=== PATIENT | female | born 1990 | race Hispanic/Latino ===

== ENCOUNTER 2020-10-02 23:05 | Emergency (ER) | payer MEDICAID ==
[~2020-10-02] VITALS: Ht 165.1 cm; Wt 102.1 kg
[2020-10-03 00:05] VITALS: BP 142/89
== END 2020-10-03 00:14 | disposition home or self-care (01) ==
LOC: EDH 23:05
DX: J06.9 Acute upper respiratory infection, unspecified (principal); Z20.822 Contact with and (suspected) exposure to COVID-19
CPT/HCPCS: 87635; 87804 ×2; 87880; 99283; C9803

== ENCOUNTER 2021-06-08 21:13 | Emergency (ER) | payer MEDICAID ==
[~2021-06-08] VITALS: Ht 165.1 cm; Wt 99.8 kg
[2021-06-08 21:37] LABS: APPEARANCE,URINE CLEAR (CLEAR); BILIRUBIN,URINE NEGATIVE (NEGATIVE); COLOR,URINE YELLOW (YELLOW); GLUCOSE, URINE (UA) >=1000 mg/dL (NEGATIVE); KETONES,URINE NEGATIVE (NEGATIVE); LEUKOCYTE ESTERASE ,URINE NEGATIVE (NEGATIVE); NITRATE,URINE POSITIVE (NEGATIVE); OCCULT BLOOD,URINE NEGATIVE (NEGATIVE); PROTEIN,URINE NEGATIVE (NEGATIVE); UROBILINOGEN,URINE 0.2 mg/dL (0.2-1.0)
[2021-06-08 21:48] LABS: BACTERIA,URINE Rare /HPF (None Seen); RBC,URINE 0-1 /HPF (0-1); SQUAMOUS EPITHELIAL CELL,UR Rare /HPF (0-2); WBC,URINE 0-1 /HPF (0-1); YEAST,URINE BUDDING Rare /HPF (None Seen)
[2021-06-08] MEDS ORDERED: CEFTRIAXONE 1G VIAL IM ONE (22:00)
[2021-06-08 22:42] VITALS: BP 128/78
[2021-06-08 22:44] LABS: CREATININE 0.7 mg/dL (0.5-1.5); POTASSIUM 4.2 mmol/L (3.5-5.1)
[2021-06-08] MEDS ORDERED: CEPH500B PO (22:50)
[2021-06-08] MEDS ORDERED: METF-444 PO (22:50)
== END 2021-06-08 22:54 | disposition home or self-care (01) ==
LOC: EDH 21:13
DX: N39.0 Urinary tract infection, site not specified (principal); E11.9 Type 2 diabetes mellitus without complications
CPT/HCPCS: 36415; 80048; 81001; 82948; 84702; 87088; 96372; 99283; J0696

== ENCOUNTER 2021-12-20 17:22 | Emergency (ER) | payer BC, MEDICAID ==
[~2021-12-20] VITALS: Ht 165.1 cm; Wt 99.3 kg
[~2021-12-20 17:22] MED LIST: CEPH500B PO; METF-444 PO
[2021-12-20 19:20] LABS: BASOPHILS % (AUTO) 0.4 % (0.0-5.0); EOSINOPHILS % (AUTO) 1.4 % (0.0-8.0); LYMPHOCYTES % (AUTO) 14.7 % (21.0-51.0); MEAN CORPUSCULAR HEMOGLOBIN 27.3 pg (27.0-33.0); MEAN CORPUSCULAR HGB CONC 34.1 g/dL (32.0-36.0); MEAN CORPUSCULAR VOLUME 80.1 fL (79-99); MONOCYTES % (AUTO) 4.3 % (3.0-13.0); NEUTROPHILS % (AUTO) 78.8 % (40.0-77.0); PLATELET COUNT (AUTO) 295 K/uL (130-400); RED BLOOD CELL COUNT(AUTO) 5.49 MIL/uL (4.00-5.50); RED CELL DISTRIBUTION WIDTH 12.8 % (11.0-15.5); WHITE BLOOD COUNT (AUTO) 10.5 K/uL (4.8-10.8)
[2021-12-20 19:22] LABS: APPEARANCE,URINE CLEAR (CLEAR); BILIRUBIN,URINE NEGATIVE (NEGATIVE); COLOR,URINE YELLOW (YELLOW); GLUCOSE, URINE (UA) NEGATIVE (NEGATIVE); KETONES,URINE 5 mg/dL (NEGATIVE); LEUKOCYTE ESTERASE ,URINE NEGATIVE Leu/uL (NEGATIVE); NITRATE,URINE NEGATIVE (NEGATIVE); OCCULT BLOOD,URINE NEGATIVE (NEGATIVE); PH,URINE 5.5 (5.0-8.0); PROTEIN,URINE 10 mg/dL (NEGATIVE); UROBILINOGEN,URINE 0.2 mg/dL (0.2-1.0)
[2021-12-20 19:25] LABS: BACTERIA,URINE RARE /HPF (None Seen); MUCUS,URINE FEW LPF (None Seen); SQUAMOUS EPITHELIAL CELL,UR RARE /HPF (0-2); WBC,URINE 0-1 /HPF (0-1)
[2021-12-20 19:26] LABS: HCG,QUALITATIVE URINE NEGATIVE (NEGATIVE)
[2021-12-20 19:30] LABS: CREATININE 0.7 mg/dL (0.5-1.5); POTASSIUM 3.8 mmol/L (3.5-5.1)
[2021-12-20 19:35] LABS: ALBUMIN 3.8 g/dL (3.5-5.0); TOTAL PROTEIN, SERUM 8.7 g/dL (6.0-8.3)
[2021-12-20 20:14] LABS: INFLUENZA TYPE A NEGATIVE FOR TYPE A (NEG); INFLUENZA TYPE B NEGATIVE FOR TYPE B (NEG)
[2021-12-20] MEDS ORDERED: ONDANSETRON 4MG INJ IVP ONE (20:30)
[2021-12-20] MEDS ORDERED: 0.9%NACL 1000ML 1,000 ML IV SCH (20:30)
[2021-12-20] MEDS ORDERED: ACETAMINOPHEN 325 MG TAB PO ONE (20:30)
[2021-12-20] MEDS ORDERED: IOHEXOL 350 MG/ML 100ML INFUS..BTL IV ONE (20:42)
[2021-12-20] MEDS ORDERED: IBUP-2071 PO (21:40)
[2021-12-20 22:19] VITALS: BP 122/54
== END 2021-12-20 22:20 | disposition home or self-care (01) ==
LOC: EDH 17:22
DX: N83.202 Unspecified ovarian cyst, left side (principal); R10.9 Unspecified abdominal pain; Z20.822 Contact with and (suspected) exposure to COVID-19; E11.9 Type 2 diabetes mellitus without complications; Z79.84 Long term (current) use of oral hypoglycemic drugs
CPT/HCPCS: 99285; 74177; 96374; 96361; 87635; 80053; 83690; 85025; 87804 ×2; 81001; 81025; 36415; C9803; J7030; J2405; Q9967

== ENCOUNTER 2024-12-15 17:36 | Emergency (ER) | payer BC ==
[~2024-12-15] VITALS: Ht 167.6 cm; Wt 93.4 kg
[~2024-12-15 17:36] MED LIST changes: +IBUP-2071 PO; +NAPR-1196 PO
--- NOTE | 2024-12-15 17:56 | ERN ---
ED Note History of Present Illness Stated Complaint: HEADACHE Chief Complaint: Headache Time Seen by MD: 17:38 Time Seen by Midlevel: 17:38 Dictation: The patient is a 34-year-old female with history of DM who presents to the emergency department with complains of right side headache onset 5 days ago. Patient also reports that she has been having on and off blurry vision from her right eye. Reports she has been taking Excedrin on and off for the headaches with little relief. Patient also reports that she developed left arm pain onset today in the morning. Denies chest pain. Denies fevers, denies nausea or vomiting. Denies head trauma. Allergies: Coded Allergies: No Known Allergies (Unverified Allergy, Unknown, 10/02/20) Home Meds Active Scripts Naproxen (Naproxen) 250 Mg Tablet, 1 TAB PO BID for pain for 10 Days, #20 TAB 0 Refills Prov:CHECO WARREN MD 03/30/24 Ibuprofen (Ibuprofen) 800 Mg Tablet, 800 MG PO Q8H PRN for PAIN, #30 TAB 0 Refills Prov:STERLING TIPTON MD 12/20/21 Metformin HCl (Metformin HCl) 500 Mg Tablet, 500 MG PO BID, #60 TAB Prov:FITTINGCATIA COLOR TELEVISION CONSOLE MONITOR 06/08/21 Cephalexin Monohydrate (Keflex) 500 Mg Cap, 500 MG PO QID for 7 Days, #28 CAP Prov:CATIA HAZEL COLOR TELEVISION CONSOLE MONITOR 06/08/21 Past Medical History Past Medical History: Diabetes-Type II Additional Past Medical Hx: FATTY LIVER Surgical History: Other, None Social History: Negative : 1 Para: 1 Aborts: 0 RN Note Reviewed/Agreed w/PFSH: Yes Review of System Dictation Constitutional: Negative for fever,chills, and weight loss Eyes: Negative for injury, pain,redness, and discharge ENT: Negative for injury,pain or swelling Cardiovascular: Negative for chest pain, palpitations, and edema Respiratory: Negative for shortness of breath, cough, and wheezing, Abdomen/GI: Negative for abdominal pain, nausea, vomiting, diarrhea, and constipation Back: Negative for injury and pain : Negative for injury, bleeding and discharge MS/Extremity: Negative for injury and deformity Skin: Negative for rash, and discoloration Neuro: Negative for, weakness, numbness, tingling, and seizure positive for headache. Psych: Negative for suicide ideation, homicidal ideation, and hallucinations Initial Vital Sign VS Vital Signs Date Time Temp Pulse Resp B/P (MAP) Pulse Ox O2 Delivery O2 Flow Rate FiO2 12/15/24 17:38 98.2 68 18 132/85 99 12/15/24 19:34 Room Air* 0 21 Physical Exam Dictation Vital Signs reviewed General Appearance: Alert, oriented x 3, no acute distress, well developed, nourished. Head and Face: non-traumatic. Eyes: PERRL, pink conjunctivas, eyelid no trauma, anterior chamber with arcus senilis. Ears: Pinnas intact and no signs of trauma or erythema ear canals clear and no discharge TM no erythema Nose: No discharge, no bleeding. Oropharynx: Mouth normal, tongue pink. pharynx clear,no erythema, tonsils no exudates, no abscesses noted, mucous membrane moist Neck: Supple, non-tender, no thyromegaly, no masses, no JVD, no bruits Breast:Deferred Chest:No tenderness, no crepitus, no paradoxical movement, no retractions Lungs:Clear, well-ventilated, symmetric, no rales, no wheezing, no rhonchi, no stridor, good breath sounds bilaterally Heart: Regular rate, regular rhythm, no murmur, no gallops Vascular: no peripheral edema, Abdomen: Soft, positive bowel sounds, nondistended, no guarding, nontender, no rebound, no masses no hepatomegaly, no splenomegaly, no Nichole's sign, no hernias. Rectal: Deferred Genital: Deferred Neurological: Normal speech, motor function intact, sensory function intact , upper extremities equal in strength, lower extremities equal in strength. No facial droop, no slurred speech. Musculoskeletal: Neck nontender, full range of motion, back nontender, full range of motion, Extremities: nontender, full range of motion Skin: Color pink, dry, no turgor, no rash, no lacerations, no abrasions, no contusions. Lymphatic: Deferred Results (Laboratory/Radiology) Laboratory/Radiology Laboratory Tests Test 12/15/24 18:06 12/15/24 19:04 White Blood Count 7.9 K/uL (4.8-10.8) Red Blood Count 4.47 MIL/uL (4.00-5.50) Hemoglobin 12.4 g/dL (12.0-16.0) Hematocrit 37.3 % (36-48) Mean Corpuscular Volume 83.4 fL (79-99) Mean Corpuscular Hemoglobin 27.7 pg (27.0-33.0) Mean Corpuscular Hemoglobin Concent 33.2 g/dL (32.0-36.0) Red Cell Distribution Width 12.9 % (11.0-15.5) Platelet Count 277 K/uL (130-400) Mean Platelet Volume 11.4 fL (7.5-10.5) H Immature Granulocyte % (Auto) 0.3 % (0-1) Neutrophils (%) (Auto) 56.7 % (40.0-77.0) Lymphocytes (%) (Auto) 33.6 % (21.0-51.0) Monocytes (%) (Auto) 6.6 % (3.0-13.0) Eosinophils (%) (Auto) 2.3 % (0.0-8.0) Basophils (%) (Auto) 0.5 % (0.0-5.0) Neutrophils # (Auto) 4.5 K/uL (1.8-7.7) Lymphocytes # (Auto) 2.6 K/uL (1.0-4.8) Monocytes # (Auto) 0.5 K/uL (0.1-1.0) Eosinophils # (Auto) 0.18 K/uL (0.00-0.70) Basophils # (Auto) 0.04 K/uL (0.00-0.20) Absolute Immature Granulocyte (auto 0.02 K/uL (0-1) Nucleated Red Blood Cells 0.0 % (0.0-0.19) Sodium Level 138 mmol/L (136-145) Potassium Level 3.9 mmol/L (3.5-5.1) Chloride Level 101 mmol/L (101-111) Carbon Dioxide Level 29 mmol/L (21-32) Blood Urea Nitrogen 9 mg/dL (7-18) Creatinine 0.7 mg/dL (0.5-1.0) Glomerular Filtration Rate Calc 116 mL/min (>90) Random Glucose 130 mg/dL (70-105) H Total Calcium 8.7 mg/dL (8.5-10.1) Magnesium Level 2.00 mg/dL (1.80-2.40) Total Creatine Kinase 65 U/L (21-232) Troponin I High Sensitivity 10 ng/L (4-50) Urine Color LIGHT-YELLOW (YELLOW) Urine Appearance CLEAR (CLEAR) Urine pH 6.0 (5.0-8.0) Urine Specific Ingram 1.006 (1.001-1.031) Urine Protein NEGATIVE mg/dL (NEGATIVE) Urine Glucose (UA) NEGATIVE mg/dL (NEGATIVE) Urine Ketones NEGATIVE mg/dL (NEGATIVE) Urine Occult Blood NEGATIVE (NEGATIVE) Urine Nitrate NEGATIVE (NEGATIVE) Urine Bilirubin NEGATIVE mg/dL (NEGATIVE) Urine Urobilinogen 0.2 mg/dL (0.2-1.0) Urine Leukocyte Esterase NEGATIVE Yesy/uL Urine HCG, Qualitative NEGATIVE (NEGATIVE) SERVICE 23 REASON: headache, vision changes ORDERING PHYSICIAN: GENE ROMO COLOR TELEVISION CONSOLE MONITOR PROCEDURE: HEAD WO - CT HEAD/BRAIN W/O CONTRAST EXAM: CT Head Without IV contrast. CLINICAL HISTORY: Headache, vision changes TECHNIQUE: Axial computed tomography images of the head/brain without intravenous contrast. COMPARISON: None provided. FINDINGS: BRAIN: No evidence of acute hemorrhage. No mass lesion. No CT evidence for acute territorial infarct. No midline shift or extra-axial collections. VENTRICLES: No hydrocephalus. ORBITS: The orbits are unremarkable. SINUSES AND MASTOIDS: The paranasal sinuses and mastoid air cells are clear. BONES: No fracture. SOFT TISSUES: Unremarkable. IMPRESSION: No evidence of acute hemorrhage. No mass lesion. No CT evidence for acute territorial infarct. Suggested MRI brain, if clinically indicated. /[place] REASON: sob ORDERING PHYSICIAN: GENE ROMO COLOR TELEVISION CONSOLE MONITOR PROCEDURE: CXR1VW - CHEST 1VW EXAM: CHEST RADIOGRAPH (1 VIEW) Technique: A single frontal view of the chest was obtained. Clinical Information: Shortness of breath. Findings: Lungs and large airways: Clear lungs without focal airspace consolidation. Pleura: No pleural effusion. No pneumothorax detected. Cardiomediastinum: Cardiac silhouette within expected size limits; mediastinal contours are unremarkable. Mediastinum and ifeoma: No mediastinal widening; ifeoma are not enlarged by radiographic criteria. Diaphragm: Hemidiaphragms are normal in contour. Bones and joints: No acute osseous abnormality identified. Upper abdomen: Visualized portions are unremarkable. Devices and lines: None.IMPRESSION: 1. No acute cardiopulmonary findings. /[place] Labs Reviewed?: Yes EKG: (+) rhythm (sinus Rhythm) EKG Comment: Date:12/15/2024 Time:182 Ventricular rate:60 NC interval:178 QRS duration:95 QT/QTc:407/407 EKG interpretation: Sinus rhythm Reviewed by ED Attending no STEMI ED Course ED Course Orders Procedure Category Date Status Time Cbc With Differential LAB 12/15/24 Complete 17:50 Chest 1vw RAD 12/15/24 Resulted 17:50 12 Lead Ekg Tracing- EKG 12/15/24 Complete Technical 17:50 0.9%Nacl 1000ml (Ns PHA 12/15/24 Complete 1000ml) 18:00 Acetaminophen 500mg PHA 12/15/24 Complete Tab (Tylenol 500mg T 18:00 Magnesium LAB 12/15/24 Complete 17:50 Creatine Kinase, Total LAB 12/15/24 Complete 17:50 Troponin I High LAB 12/15/24 Complete Sensitivity 17:50 Urinalysis Profile LAB 12/15/24 Complete 17:50 Basic Metabolic Panel LAB 12/15/24 Complete 17:50 ,Urine Test LAB 12/15/24 Complete 17:50 Metoclopramide 10 PHA 12/15/24 Complete Mg/2 Ml Vial (Reglan 1 18:00 Diphenhydramine Hcl PHA 12/15/24 Complete (Benadryl Inj) 18:00 Ct Head/Brain W/O CT 12/15/24 Resulted Contrast 19:24 Ketorolac PHA 12/15/24 Logged Tromethamine 15mg/Ml 21:00 Current Medications Medications (Trade) Dose Ordered Sig/Crystal Route PRN Reason Start Time Stop Time Status Last Admin Dose Admin Acetaminophen (TYLenol 500MG TAB) 1,000 mg ONCE ONCE PO 12/15/24 18:00 12/15/24 18:01 DC 12/15/24 19:23 Diphenhydramine HCl (BENAdryl INJ) 25 mg ONCE ONCE IV 12/15/24 18:00 12/15/24 18:01 DC 12/15/24 19:23 Ketorolac Tromethamine (toRADol) 15 mg ONCE ONCE IV 12/15/24 21:00 12/15/24 21:01 UNV Metoclopramide HCl (regLAN 10MG IV) 10 mg ONCE ONCE IVP 12/15/24 18:00 12/15/24 20:49 DC 12/15/24 19:23 Sodium Chloride 1,000 ml @ 0 mls/hr ONCE ONCE IV 12/15/24 18:00 12/15/24 18:01 DC 12/15/24 19:24 Vital Signs Date Time Temp Pulse Resp B/P (MAP) Pulse Ox O2 Delivery O2 Flow Rate FiO2 12/15/24 19:34 98.8 75 20 152/78 99 Room Air* 0 21 12/15/24 17:38 98.2 68 18 132/85 99 Medical Decision Making MDM The patient is a 34-year-old female with history of DM who presents to the emergency department with complains of right side headache onset 5 days ago. Patient also reports that she has been having on and off blurry vision from her right eye. Reports she has been taking Excedrin on and off for the headaches with little relief. Patient also reports that she developed left arm pain onset today in the morning. Denies chest pain. Denies fevers, denies nausea or vomiting. Denies head trauma. CBC showed no leukocytosis, no anemia, chemistry showed no electrolyte imbalance, negative troponin, urinalysis unremarkable CT showed no acute pathology. Xray showed no acute pathology. Patient reports felling better after medications. On physical exam patient continues in no acute distress, neurologically intact, NIH of 0. No current visual deficits. Patient will be discharge to follow up with PCP. Differential diagnosis: Need for hospitalization: Patient does not meet criteria for hospitalization. There are no social concerns with this patient. DX & DISP Disposition: Discharge Departure Impression: Primary Impression: Migraine headache Condition: Stable Additional Instructions: Your labs and imaging were unremarkable. Please follow up with the primary doctor in 1-2 days. If anything worsens please return to ER. FOLLOW-UP WITH PRIMARY CARE PROVIDER IN 1 TO 2 DAYS. TAKE MEDICATIONS DIRECTED HERE IN THE EMERGENCY ROOM. OKAY TO CONTINUE HOME MEDICATIONS UNLESS OTHERWISE DISCUSSED DURING YOUR VISIT IN THE EMERGENCY ROOM TODAY. RETURN TO YOUR NEAREST EMERGENCY ROOM IF SYMPTOMS WORSEN OR IF THERE IS NO IMPROVEMENT. CALL 911 IF YOU NEED IMMEDIATE ASSISTANCE. TAKE TYLENOL [id number] NEEDED AND IF NO CONTRAINDICATIONS ARE PRESENT. INCREASE ORAL HYDRATION. A WOUND CULTURE OR URINE CULTURE WAS ORDERED HERE IN THE EMERGENCY ROOM DEPARTMENT PLEASE FOLLOW-UP WITH PRIMARY CARE PROVIDER AND ADVISE THEM TO GET REPEAT PORTS FROM OUR FACILITY. IF YOU HAD ANY SHAYLA WRAP/SPLINTS THAT WERE APPLIED HERE, PLEASE DO NOT REMOVE THEM UNTIL YOU SEE YOUR PRIMARY CARE OR SPECIALTY. Referrals: HOLLIS ELAM MD (PCP) Time of Disposition: 20:33 I have reviewed the case, and I agree with, Diagnosis and Plan I performed a substantive portion of the visit. I have reviewed and personally made and approve the management plan that is documented in the notes by myself with NEO/resident. I acknowledged full responsibility for the patient's management plan. GENE ROMO Dec 15, 2024 17:56 SYDNI LUX DO Dec 15, 2024 20:51
[2024-12-15 18:16] LABS: IMMATURE GRANULOCYTE ABSOLUTE 0.02 K/uL (0-1); NUCLEATED RED BLOOD CELLS 0.0 % (0.0-0.19); PLATELET COUNT (AUTO) 277 K/uL (130-400); RED BLOOD CELL COUNT(AUTO) 4.47 MIL/uL (4.00-5.50); RED CELL DISTRIBUTION WIDTH 12.9 % (11.0-15.5); WHITE BLOOD COUNT (AUTO) 7.9 K/uL (4.8-10.8)
[2024-12-15 18:22] LABS: CREATININE 0.7 mg/dL (0.5-1.0); GLOMERULAR FILTR. RATE CALC 116.0 mL/min (>90); GLUCOSE,RANDOM 130.0 mg/dL (70-105); SODIUM SERUM 138.0 mmol/L (136-145); UREA NITROGEN, BLOOD 9.0 mg/dL (7-18)
[2024-12-15 18:31] LABS: CREATINE KINASE, TOTAL 65.0 U/L (21-232)
--- NOTE | 2024-12-15 18:39 | HMCIMG ---
EXAM: CHEST RADIOGRAPH (1 VIEW) Technique: A single frontal view of the chest was obtained. Clinical Information: Shortness of breath. Findings: Lungs and large airways: Clear lungs without focal airspace consolidation. Pleura: No pleural effusion. No pneumothorax detected. Cardiomediastinum: Cardiac silhouette within expected size limits; mediastinal contours are unremarkable. Mediastinum and ifeoma: No mediastinal widening; ifeoma are not enlarged by radiographic criteria. Diaphragm: Hemidiaphragms are normal in contour. Bones and joints: No acute osseous abnormality identified. Upper abdomen: Visualized portions are unremarkable. Devices and lines: None.IMPRESSION: 1. No acute cardiopulmonary findings. /[place]
--- NOTE | 2024-12-15 19:03 | EKG ---
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
--- NOTE | 2024-12-15 19:13 | NUR ---
ASSUMED PT CARE
[2024-12-15 19:15] LABS: APPEARANCE,URINE CLEAR (CLEAR); GLUCOSE, URINE (UA) NEGATIVE (NEGATIVE); LEUKOCYTE ESTERASE ,URINE NEGATIVE Leu/uL (NEGATIVE); NITRATE,URINE NEGATIVE (NEGATIVE); OCCULT BLOOD,URINE NEGATIVE (NEGATIVE)
[2024-12-15 19:16] LABS: ADD UA MICROSCOPIC NO
[2024-12-15 19:18] LABS: HCG,QUALITATIVE URINE NEGATIVE (NEGATIVE)
[2024-12-15] MEDS: 0.9%NACL 1000ML 1,000 ML IV ONE (19:24)
[2024-12-15 19:34] VITALS: BP 152/78; PULSE 75; RESP 20; TEMP 98.8; O2SAT 99
--- NOTE | 2024-12-15 20:10 | HMCIMG ---
EXAM: CT Head Without IV contrast. CLINICAL HISTORY: Headache, vision changes TECHNIQUE: Axial computed tomography images of the head/brain without intravenous contrast. COMPARISON: None provided. FINDINGS: BRAIN: No evidence of acute hemorrhage. No mass lesion. No CT evidence for acute territorial infarct. No midline shift or extra-axial collections. VENTRICLES: No hydrocephalus. ORBITS: The orbits are unremarkable. SINUSES AND MASTOIDS: The paranasal sinuses and mastoid air cells are clear. BONES: No fracture. SOFT TISSUES: Unremarkable. IMPRESSION: No evidence of acute hemorrhage. No mass lesion. No CT evidence for acute territorial infarct. Suggested MRI brain, if clinically indicated. /[place]
== END 2024-12-15 20:45 | disposition home or self-care (01) ==
LOC: EDH 17:36
DX: G43.909 Migraine, unspecified, not intractable, without status migrainosus (principal); E11.9 Type 2 diabetes mellitus without complications; Z79.84 Long term (current) use of oral hypoglycemic drugs
CPT/HCPCS: 99284; 96374; 70450; 96375; 71045; 96361; 82550; 83735; 84484; 80048; 85025; 81003; 81025; 36415; 93005; J1200; J7030; J2765

== ENCOUNTER → 2025-01-20 | Outpatient (CLI) | payer OTHER ==
--- NOTE | 2025-01-21 08:46 | HMCIMG ---
EXAM: CT Cardiac calcium scoring. CLINICAL HISTORY: HEART SAVER (Hx) / HEART SAVER, Ca Score TECHNIQUE: Thin collimated axial CT cardiac images were obtained. A CT scan is done according to ALARA (As Low As Reasonably Achievable). CONTRAST: None. COMPARISON: None provided. FINDINGS: Calcium Score: VESSEL Lesion Calcium score LM 1 4.8 LAD 0 0 LCX 0 0 RCA 0 0 Total 1 4.8 IMPRESSION: The total calcium score is 4.8. This corresponds to approximately the 97th percentile. /[place]
== END | disposition home or self-care (01) ==
LOC: RAH 10:37
PROVIDERS: ATTEND Family Medicine
DX: Z13.6 Encounter for screening for cardiovascular disorders (principal)
CPT/HCPCS: 75571